=== PATIENT | male | born 1970 | race Caucasian/White ===

== ENCOUNTER → 2021-05-01 11:18 | Day surgery (SDC) | payer SELFPAY ==
[2021-04-30 10:00] VITALS: BMI 24.1
== END ==
PROVIDERS: PCP Thoracic Surgery (Cardiothoracic Vascular Surgery); Visit Provider Internal Medicine Cardiovascular Disease
DX: Z01.810 Encounter for preprocedural cardiovascular examination (principal)
CPT/HCPCS: 93005

== ENCOUNTER → 2022-03-25 | Outpatient (CLI) | payer SELFPAY ==
--- NOTE | 2022-03-25 14:38 | ECHOD_ITS ---
Reason For Study: ATRIAL FIB-FLUTTER Procedure This was a 2D Doppler, Color Flow transthoracic echocardiogram. Exam performed in department. Left Ventricle Normal LV size. Left ventricular systolic function is normal. The estimated ejection fraction is 55 %. Normal diastology for age. No regional wall motion abnormalities noted. Right Ventricle Normal RV size. Normal systolic function. Atria Normal left atrium. Normal right atrium. Mitral Valve Bileaflet diffuse mitral valve thickening. Equivocal mitral valve prolapse. Equivocal mitral valve prolapse, bileaflet. Tricuspid Valve Normal tricuspid valve. Aortic Valve Trisinus/trileaflet aortic valve. Pulmonic Valve Normal pulmonic valve. Great Vessels Normal aortic root. The pulmonary artery is normal size. Normal inferior vena cava. Pericardium/Pleural No pericardial effusion. MMode/2D Measurements & Calculations LVIDd: 5.5 cm IVSd: 0.86 cm Ao root diam: 2.9 cm LVIDs: 4.1 cm LVPWd: 1.2 cm RVDd: 4.9 cm FS: 24.8 % LAV(MOD-sp4): 52.9 ml LVAd ap4: 41.3 cm2 SV(MOD-sp4): 91.7 ml LVLd ap4: 9.1 cm EDV(MOD-sp4): 152.6 ml EDV(sp4-el): 159.0 ml LVAs ap4: 23.4 cm2 LVLs ap4: 7.3 cm ESV(MOD-sp4): 60.9 ml ESV(sp4-el): 63.7 ml EF(MOD-sp4): 60.1 % EF(sp4-el): 59.9 % SV(sp4-el): 95.3 ml LA A4 area: 19.8 cm2 LA dimension(2D): 4.1 cm RA A4 area: 21.7 cm2 Time Measurements MV dec time: 0.20 sec Doppler Measurements & Calculations MV E max ronnie: 75.6 cm/sec Lat Peak E' Ronnie: 10.8 cm/sec Med Peak E' Ronnie: 8.5 cm/sec MV A max ronnie: 32.8 cm/sec E/E' lat: 7.0 E/E' med: 8.8 MV E/A: 2.3 MV V2 max: 71.4 cm/sec LV V1 max: 94.9 cm/sec MV max P.0 mmHg MV dec slope: 370.9 cm/sec2 LV V1 max P.6 mmHg MV V2 mean: 39.8 cm/sec LV V1 mean P.9 mmHg MV mean P.76 mmHg LV V1 mean: 64.4 cm/sec MV V2 VTI: 25.8 cm LV V1 VTI: 19.0 cm ECHO/Echo Complete Interpretation Summary Normal LV size. Left ventricular systolic function is normal. The estimated ejection fraction is 55 %. Bileaflet diffuse mitral valve thickening. Equivocal mitral valve prolapse, bileaflet Normal diastology for age. Ordering Physician: Veronica Lantigua Referring Physician: Veronica Lantigua Performed By: Gloria Harrington RCS
== END | disposition home or self-care (01) ==
PROVIDERS: Referring Provider Physician Assistant Medical; Visit Provider Physician Assistant Medical
DX: I48.19 Other persistent atrial fibrillation (principal); I42.8 Other cardiomyopathies
CPT/HCPCS: 93306